=== PATIENT | male | born 1960 ===

== ENCOUNTER 2020-01-05 10:30 | Emergency (ER) | payer OTHER ==
[~2020-01-05] VITALS: Ht 190.5 cm; Wt 136.1 kg
[2020-01-05 10:55] LABS: BASOPHILS ABSOLUTE AUTO 0.09 K/mm3 (0.00-0.23); BASOPHILS PERCENT AUTO 1 % (0-2); EOSINOPHILS ABSOLUTE AUTO 0.14 K/mm3 (0.00-0.68); EOSINOPHILS PERCENT AUTO 2 % (0-6); IMMATURE GRAN ABSOLUTE AUTO 0.05 K/mm3 (0.00-0.10); IMMATURE GRAN PERCENT AUTO 1 % (0-1); LYMPHOCYTES ABSOLUTE AUTO 2.38 K/mm3 (0.84-5.20); LYMPHOCYTES PERCENT AUTO 25 % (21-46); MONOCYTES ABSOLUTE AUTO 0.89 K/mm3 (0.16-1.47); MONOCYTES PERCENT AUTO 9 % (4-13); Mean Corpuscular HGB Conc 33.3 g/dL (31.5-36.5); Mean Corpuscular Volume 84 fL (80-100); Mean Platelet Volume 10.2 fL (9.1-12.4); NEUTROPHILS ABSOLUTE AUTO 5.95 K/mm3 (1.96-9.15); NEUTROPHILS PERCENT AUTO 63 % (41-73); Platelet Count 230 K/mm3 (150-400); RDW Coefficient Variation 14.3 % (11.7-14.2); RDW Standard Deviation 43.1 fL (35.1-46.3); Red Blood Cell Count 6.07 M/mm3 (4.30-5.90)
[2020-01-05 11:10] LABS: Alanine Aminotransfer (ALT/SGP 50 U/L (12-78); Albumin/Globulin Ratio 1.3 (0.8-1.8); Alk Phos 56 U/L (50-136); Anion Gap 4 mmol/L (6-16); Aspartate Aminotrans (AST/SGOT 20 U/L (12-37); Bilirubin, Total 1.3 mg/dL (0.1-1.0); Blood Urea Nitrogen 18 mg/dL (8-24); Bun/Creatinine Ratio 15.4 (12.0-20.0); CO2, Blood 29 mmol/L (21-32); Calcium, Blood 9.2 mg/dL (8.5-10.1); Chloride, Blood 105 mmol/L (98-108); Creatinine, Blood 1.17 mg/dL (0.60-1.20); Glomerular Filtration Rate >60 (60-); Glucose, Blood 94 mg/dL (70-99); Potassium, Blood 4.3 mmol/L (3.5-5.5); Sodium, Blood 138 mmol/L (136-145)
[2020-01-05 11:12] LABS: International Normalized Ratio 0.98; Prothrombin Time Results 10.5 Sec (9.7-11.5)
[2020-01-05] MEDS ORDERED: TRAZ100 PO (11:19)
[2020-01-05] MEDS ORDERED: HYDROCODONE-AC1 EAC8 PO (11:20)
[2020-01-05] MEDS ORDERED: GABA300 PO (11:20)
[2020-01-05] MEDS ORDERED: ZESTRIL40 M1 PO (11:21)
[2020-01-05] MEDS ORDERED: CELE200 PO (11:21)
[2020-01-05] MEDS ORDERED: CITALOPRAM HBR10 MG PO (11:21)
[2020-01-05] MEDS ORDERED: HYDCHL25 PO (11:21)
[2020-01-05] MEDS ORDERED: MAGNESIUM OXID500 MG PO (11:22)
[2020-01-05] MEDS ORDERED: CALCIUM-MAGNES1 EAC9 PO (11:22)
[2020-01-05] MEDS ORDERED: ZINC15 PO (11:22)
[2020-01-05] MEDS ORDERED: Vitamin B-121000 MCG PO (11:22)
[2020-01-05] MEDS ORDERED: TESTONE CI200 MG/1 M IM (11:23)
== END 2020-01-05 16:44 | disposition home or self-care (01) ==
LOC: ER 10:30
PROVIDERS: Emergency Medicine
DX: R47.01 Aphasia (principal); H53.2 Diplopia; J32.9 Chronic sinusitis, unspecified; Z79.899 Other long term (current) drug therapy
CPT/HCPCS: 70450; 70496; 70498; 70553; 80053; 85025; 85610; 85730; 93005; 93010; 99285-25; A9579; Q9967